=== PATIENT | female | born 1975 | race Caucasian/White ===

== ENCOUNTER → 2019-11-08 11:29 | Outpatient (BNVA) | payer MEDICAID, SELFPAY | PROVIDERS: Family Provider Family Medicine; PCP Family Medicine; Visit Provider Nurse Practitioner Family | DX: J06.9 Acute upper respiratory infection, unspecified (principal); B97.89 Other viral agents as the cause of diseases classified elsewhere | CPT/HCPCS: 81025 ==

== ENCOUNTER → 2020-12-03 15:50 | Outpatient (BNVA) | payer MEDICAID, SELFPAY | PROVIDERS: Family Provider Family Medicine; PCP Family Medicine; Visit Provider Nurse Practitioner Family | DX: Z30.42 Encounter for surveillance of injectable contraceptive (principal) | CPT/HCPCS: 81025 ==

== ENCOUNTER → 2021-05-12 17:23 | Outpatient (BNVA) | payer MEDICAID, SELFPAY | PROVIDERS: Family Provider Family Medicine; PCP Family Medicine; Visit Provider Emergency Medicine | DX: Z20.822 Contact with and (suspected) exposure to COVID-19 (principal) | CPT/HCPCS: 87635 ==

== ENCOUNTER → 2021-08-13 14:03 | Outpatient (BNVA) | payer MEDICAID, SELFPAY | PROVIDERS: Family Provider Family Medicine; PCP Family Medicine; Visit Provider Family Medicine | DX: Z23 Encounter for immunization (principal) | CPT/HCPCS: 81025 ==

== ENCOUNTER → 2021-11-05 14:40 | Outpatient (BNVA) | payer MEDICAID, SELFPAY | PROVIDERS: Family Provider Family Medicine; PCP Family Medicine; Visit Provider Family Medicine | DX: R39.9 Unspecified symptoms and signs involving the genitourinary system (principal); K59.00 Constipation, unspecified; Z30.42 Encounter for surveillance of injectable contraceptive; R31.9 Hematuria, unspecified; K59.04 Chronic idiopathic constipation; R31.1 Benign essential microscopic hematuria | CPT/HCPCS: 81000; 87086 ==

== ENCOUNTER → 2022-05-03 10:30 | Outpatient (BNVA) | payer MEDICAID, SELFPAY | PROVIDERS: Family Provider Family Medicine; PCP Family Medicine; Visit Provider Emergency Medicine | DX: R42 Dizziness and giddiness (principal); K04.7 Periapical abscess without sinus | CPT/HCPCS: 82962 ==

== ENCOUNTER → 2022-08-05 16:44 | Outpatient (BNVA) | payer MEDICAID, SELFPAY | PROVIDERS: Family Provider Family Medicine; PCP Family Medicine; Visit Provider Nurse Practitioner Family | DX: Z30.9 Encounter for contraceptive management, unspecified (principal) | CPT/HCPCS: 81025 ==

== ENCOUNTER → 2023-01-29 09:22 | Outpatient (BNVA) | payer MEDICAID, SELFPAY | PROVIDERS: Family Provider Family Medicine; PCP Family Medicine; Visit Provider Emergency Medicine | DX: M54.50 Low back pain, unspecified (principal); Z30.42 Encounter for surveillance of injectable contraceptive | CPT/HCPCS: 72114 ==

== ENCOUNTER 2023-02-07 22:29 | Emergency (ER) | payer MEDICAID, SELFPAY ==
--- NOTE | 2023-02-07 22:40 | XRR_ITS ---
PROCEDURE INFORMATION: Exam: XR Right Hand Exam date and time: 02/07/2023 10:56 PM Age: 47 years old Clinical indication: Injury or trauma; Fall; Blunt trauma (contusions or hematomas); Wrist and hand; Right; Additional info: Fall injury TECHNIQUE: Imaging protocol: Radiologic exam of the right hand. Views: 3 or more views. COMPARISON: No relevant prior studies available. FINDINGS: Bones/joints: Normal. Soft tissues: Normal. XR/XR hand RT min 3V* [id number] IMPRESSION: Unremarkable.
--- NOTE | 2023-02-07 22:40 | XRR_ITS ---
PROCEDURE INFORMATION: Exam: XR Right Wrist Exam date and time: 02/07/2023 11:01 PM Age: 47 years old Clinical indication: Injury or trauma; Fall; Blunt trauma (contusions or hematomas); Wrist and hand; Right; Additional info: Fall injury TECHNIQUE: Imaging protocol: Radiologic exam of the right wrist. Views: 3 or more views. COMPARISON: CR (UP EX, ) 02/07/2023 10:56 PM FINDINGS: Bones/joints: Subtle nondisplaced transverse fracture through the distal radius. The carpal bones are intact. Soft tissues: Normal. XR/XR wrist RT min 3V* [id number] IMPRESSION: Subtle nondisplaced transverse fracture through the distal radius
[2023-02-07 23:23] VITALS: BP 118/61; PULSE 88; RESP 16; TEMP 36.6; O2SAT 97
[2023-02-07 23:26] VITALS: BMI 24.3
--- NOTE | 2023-02-07 23:46 | W.ED.EXTPRO ---
HPI - Extremity Problem General: Chief complaint: Extremity Injury, Upper Stated complaint: fall , right hand injury Time Seen by Provider: 02/07/23 23:11 History of Present Illness: Patient is a 47-year-old female comes to the ED with right wrist injury. Injury occurred just prior to arrival. Patient was standing on a trailer and fell landing on right wrist. Denies any head trauma or loss of consciousness. She is complaining of having pain in right wrist that she rates a 7 out of 10. Associated symptoms: Deny chest pain, fever(s) or rash Review of Systems Const: Denies: fever(s), chills or fatigue Eyes: Denies: change in vision or eye discomfort ENMT: Denies: throat pain, odynophagia, nasal discharge or nasal congestion Card: Denies: chest pain, palpitations, edema, swelling of feet/ankles, dyspnea on exertion or orthopnea Resp: Denies: dyspnea, productive cough or non-productive cough GI: Denies: abdominal pain, nausea, vomiting, diarrhea, constipation or hematochezia : Denies: flank pain, dysuria or hematuria Musc: Reports: extremity pain (right wrist), extremity swelling (right wrist) and limited range of motion (Right wrist); Denies: neck pain or back pain Skin/Breast: Denies: rash or new lesions Neuro: Denies: headache(s), numbness in extremities or weakness in extremities PFS ED PFSH: Medical History (Updated 02/07/23 @ 23:57 by BRITNEY Patricia) Low back pain Lumbar spine root compression Surgical History No pertinent past surgical history Family History Mother Stroke Diabetes Denies family history of Hypertension Social History Smoking and tobacco status: current some day smoker Alcohol intake: never Female Reproductive History: Spontaneous abortions: No Physical Exam Const: COMMON NORMALS: no acute distress, patient oriented x3 and alert HENMT: COMMON NORMALS: normocephalic HEAD & SCALP: normocephalic MOUTH: Normal oral and palatal mucosa present THROAT: posterior oropharynx normal and uvula midline Neck/C-Spine: COMMON NORMALS: supple GENERAL: Yes normal visual inspection Resp: COMMON NORMALS: normal respiratory effort, No retractions, No use of accessory muscles and clear to auscultation bilaterally AUSCULTATION: clear to auscultation bilaterally Cardio: COMMON NORMALS: regular rate, regular rhythm, S1 normal heart sound present, S2 normal heart sound present, No gallops present (Cardio), No clicks present (Cardio), No murmurs present (Cardio) and Peripheral pulses 2+ throughout RATE: regular rate RHYTHM: regular rhythm HEART SOUNDS: S1 normal heart sound present and S2 normal heart sound present PERIPHERAL PULSES: Peripheral pulses 2+ throughout GI: COMMON NORMALS: Normal to inspection, nondistended, normoactive bowel sounds present, Soft to palpation, non-tender and no masses PALPATION: Yes Soft to palpation : COMMON NORMALS: Yes no CVA tenderness BLADDER/KIDNEY EXAM: Yes no CVA tenderness Back/Pelvis: COMMON NORMALS: no CVA tenderness Extremity: NARRATIVE EXTREMITY EXAM: Right wrist?no visible deformity noted ecchymosis and swelling seen around wrist. Tenderness to radial aspect of wrist. Neurovascular intact distally. Neuro: COMMON NORMALS: patient oriented x3 SENSORIUM/ORIENTATION: Yes alert GAIT: Yes Normal gait present Course Vital Signs: Vital signs: Vital Signs Temperature 98 F 02/08/23 00:29 Pulse Rate 88 02/08/23 00:29 Respiratory Rate 16 02/08/23 00:29 Blood Pressure 118/61 02/08/23 00:29 Pulse Oximetry 97 02/08/23 00:29 Oxygen Delivery Me thod Room Air 02/07/23 23:23 MDM - Extremity (Nontraumatic) Medical Decision Making Patient is a 47-year-old female comes to the ED with right wrist injury. Injury occurred just prior to arrival. Patient was standing on a trailer and fell landing on right wrist. Denies any head trauma or loss of consciousness. She is complaining of having pain in right wrist that she rates a 7 out of 10. Vitals are stable. Right wrist?no visible deformity noted ecchymosis and swelling seen around wrist. Tenderness to radial aspect of wrist. Neurovascular intact distally. X-ray of right wrist shows nondisplaced transverse fracture through the distal radius. I placed order with case management for patient to be referred to Ortho for follow-up of wrist fracture. Patient was given dose of hydrocodone here in the ED and put in a volar splint. She was stable for discharge home with a prescription for couple hydrocodone to help with pain. Return ED precautions given. Patient understood agree with plan. Lab Data Radiology Impressions Hand X-Ray 02/07/23 22:40 IMPRESSION: Unremarkable. Wrist X-Ray 02/07/23 22:40 IMPRESSION: Subtle nondisplaced transverse fracture through the distal radius Discharge Plan Discharge Patient Disposition: Home Clinical Impression: Fracture of right wrist Qualifiers: Encounter type: initial encounter Fracture type: closed Qualified Code(s): S62.101A - Fracture of unspecified carpal bone, right wrist, initial encounter for closed fracture Condition: Stable Prescriptions: No Action ondansetron 4 mg tablet,disintegrating 4 mg PO Q8H 4 Days Qty: 12 0RF medroxyprogesterone 150 mg/mL syringe See Rx Instructions .ROUTE .COMPLEX Qty: 1 3RF Dose Instruction: 150 MG IM EVERY 3 MONTHS Rx Instructions: 150 MG IM EVERY 3 MONTHS Discharge Orders: Discharge ED (Routine); Ordered 02/07/23 Ordered By: Sarthak Choudhury Referrals: Lucila Knox MD [Primary Care Provider] - Discharge Diet: Regular Discharge Activity: Limit activity as instructed Patient Instructions: Wrist Fracture in Adults (ED), Opioid Safety Activity Restrictions/Additional Instructions: Follow-up with medical provider as directed. Case management will contact you in the next several days to set up an appointment with Ortho for follow-up on wrist fracture. Keep splint on and dry and limit activity with right wrist until cleared by Ortho. Take medications as prescribed. Return to the ER or your medical provider if condition worsens. Please read and understand discharge instructions. Thank you for choosing [facility] for your healthcare needs today. Please realize this is an emergency room and that we are providing you with a medical screening exam and this may not be complete and all inclusive of all the testing and or work up that you may need to determine your ailment or severity of your illness. It is very important that you follow up as instructed or that you return to the Emergency Department should you have concerns or if your condition changes or worsens in any way. Coding Level of Care Code ED [employer] for Olivia Silverio
[2023-02-07] MEDS: HYDROcodone-acetaminophen 7.5-325 mg Tablet 1 TAB PO (23:55)
[2023-02-08 00:29] VITALS: BP 118/61; PULSE 88; RESP 16; TEMP 36.6; O2SAT 97
--- NOTE | 2023-02-09 08:55 | DCPLANNER ---
Addendum entered by Rosa Holbrook 02/19/23 08:52: This appointment was rescheduled Addendum entered by Rosa Holbrook 02/10/23 11:29: Patient has a follow up appointment scheduled for Saturday, February 18, 2023 at 8:[address] Saalzar at ortho. Original Note: underwriting support manager had message to schedule a follow up appointment for patient with ortho. underwriting support manager sent patients information to the front office staff at ortho. Patients information will be printed and reviewed. Clinic will call patient with appointment information.
== END 2023-02-08 00:31 | disposition home or self-care (01) ==
PROVIDERS: Emergency Provider Physician Assistant; PCP Family Medicine
DX: S52.591A Other fractures of lower end of right radius, initial encounter for closed fracture (principal); F17.210 Nicotine dependence, cigarettes, uncomplicated; W17.89XA Other fall from one level to another, initial encounter
CPT/HCPCS: 29125; 73110; 73130; 99283; A4590

== ENCOUNTER 2023-02-23 06:00 | Outpatient (RCR) | payer MEDICAID, SELFPAY | END 2023-03-25 23:59 | disposition home or self-care (01) | LOC: MPT 06:00 | PROVIDERS: Visit Provider Emergency Medicine | DX: M54.16 Radiculopathy, lumbar region (principal); M54.50 Low back pain, unspecified; G89.29 Other chronic pain | CPT/HCPCS: 97110; 97162; 97530 ==

== ENCOUNTER 2023-02-24 10:29 | Emergency (ER) | payer MEDICAID, SELFPAY ==
[2023-02-24 10:35] VITALS: BP 135/88; PULSE 85; RESP 16; TEMP 36.8; O2SAT 98; BMI 33.5
--- NOTE | 2023-02-24 10:52 | XRR_ITS ---
PROCEDURE INFORMATION: Exam: XR Right Wrist Exam date and time: 02/24/2023 11:10 AM Age: 47 years old Clinical indication: Pain; Wrist; Right; Additional info: Previous wrist FX; Pain/bruising TECHNIQUE: Imaging protocol: Radiologic exam of the right wrist. Views: 3 or more views. COMPARISON: CR ( EX, ) 02/07/2023 11:01 PM FINDINGS: Bones/joints: There is a nondisplaced transverse fracture of the distal radial metaphysis with subtle buckling of the dorsal cortex, similar to the findings on 02/07/2023. The distal ulna is intact. Wrist alignment is normal. Carpal bones are intact. Joint alignment is normal. Joint spaces are preserved. Soft tissues: Visible soft tissues are unremarkable. XR/XR wrist RT min 3V* [id number] IMPRESSION: Nondisplaced distal radial metaphyseal fracture. No change since 02/07/2023.
--- NOTE | 2023-02-24 10:53 | ED_ITS ---
HPI - Extremity Injury (Upper) General: Chief Complaint: Extremity Injury, Upper Stated Complaint: right hand injury Time Seen by Provider: 02/24/23 10:48 Source: patient Mode of arrival: ambulatory Limitations: no limitations History of Present Illness: Patient is a 47-year-old female who presents to ED today for evaluation of continued right wrist pain. Patient was seen at our facility on 02/07 and diagnosed with a subtle distal radial fracture. According to case management documentation she had submitted information to the orthopedic clinic and they were supposed to reach out to patient in regards to her follow-up appointment. Case management then later documented that patient had an appointment scheduled Saturday, February 18, 2023 at 8:[address] Salazar. Patient tells me she was never aware of this appointment therefore never has had orthopedic follow-up. She has not been wearing her splint as instructed since the injury. She has removed it and now wearing a velcro wrist splint. She has noticed bruising around the wrist. MD complaint: injury to: right and wrist Onset (ago): week(s) Other injuries: none Place: home Severity: moderate Relieving factors: immobilization Exacerbating factors: movement of extremity Associated symptoms: Reports no associated symptoms; Denies weakness in extremities Treatments prior to arrival: splint Review of Systems Musc: Reports: joint pain (R wrist), joint swelling (R wrist) and limited range of motion; Denies: extremity pain, extremity swelling, joint redness or joint warmth Neuro: Denies: numbness in extremities, weakness in extremities or sensory changes PFS ED PFSH: Medical History Low back pain Lumbar spine root compression Surgical History No pertinent past surgical history Family History Mother Stroke Diabetes Denies family history of Hypertension Social History Smoking and tobacco status: current some day smoker Alcohol intake: never Substance/Drug Use: never Female Reproductive History: Spontaneous abortions: No Physical Exam Const: COMMON NORMALS: no acute distress, patient oriented x3, no limitations, alert and well nourished Extremity: RIGHT UPPER EXTREMITY: Yes wrist Right wrist: Yes inspection (swelling/old healing ecchymosis present), Yes palpation (TTP distal R radial wrist), Yes ROM (limited secondary to pain) and Yes neurovascular exam (normal) and Yes hand & digits Neuro: COMMON NORMALS: patient oriented x3, moves all extremities, no focal motor deficits and no sensory deficits noted SENSORIUM/ORIENTATION: Yes alert Course Vital Signs: Vital signs: Vital Signs Temperature 98.2 F 02/24/23 10:35 Pulse Rate 85 02/24/23 10:35 Respiratory Rate 16 02/24/23 10:35 Blood Pressure 135/88 02/24/23 10:35 Pulse Oximetry 98 02/24/23 10:35 Oxygen Delivery Me thod Room Air 02/24/23 10:35 MDM - Extremity Injury (Upper) Medical Decision Making Patient had an appointment scheduled for February 18 however patient states she was unaware of this appointment and never followed up. After speaking to case management today it was noted she actually had an appointment at orthopedics at 11:00 today. We called ortho and they graciously are willing to see patient at 1:00 today. XR notable for her distal radial fracture. I do have some suspicion for possible scaphoid fracture on one view. Will let ortho further evaluate. Discharge Plan Discharge Patient Disposition: Home Clinical Impression: Closed right radial fracture Qualifiers: Encounter type: subsequent encounter Radius location: distal Fracture morphology: unspecified fracture morphology Fracture healing: with routine healing Qualified Code(s): S52.501D - Unspecified fracture of the lower end of right radius, subsequent encounter for closed fracture with routine healing Condition: Stable Prescriptions: No Action ondansetron 4 mg tablet,disintegrating 4 mg PO Q8H 4 Days Qty: 12 0RF medroxyprogesterone 150 mg/mL syringe See Rx Instructions .ROUTE .COMPLEX Qty: 1 3RF Dose Instruction: 150 MG IM EVERY 3 MONTHS Rx Instructions: 150 MG IM EVERY 3 MONTHS Discharge Orders: Discharge ED (Routine); Ordered 02/24/23 Ordered By: Heide Ascencio Activity Restrictions/Additional Instructions: ORTHOPEDIC CLINIC IS GOING TO EVALUATE YOU TODAY AT 1:00. WE DISCUSSED THEIR OFFICE IS IN THE NEW MEDICAL OFFICE BUILDING. YOU HAVE RECEIVED INSTRUCTIONS ON HOW TO GET THERE FROM THE ED. THEY WILL REVIEW YOUR X-RAY FROM TODAY AND EVALUATE YOU AND PLACE YOU IN AN APPROPRIATE SPLINT/CAST. Coding Level of Care Code ED Applications Administrator for Olivia Silverio
--- NOTE | 2023-02-24 11:39 | DCPLANNER ---
Addendum entered by Rosa Holbrook 02/24/23 14:00: Patient had a follow up appointment scheduled with ortho - patient did attend appointment. Original Note: brood station manager was asked to call ortho about patients appointment that was scheduled. brood station manager told provider that appointment was scheduled for today at 11:00, patient did not attend appointment. brood station manager was asked to call ortho and see if patient could be seen today. brood station manager called the ortho clinic, was told that patient could be seen today at 1:00. brood station manager gave ER provider the new appointment, and this was given to the patient.
--- NOTE | 2023-02-24 11:45 | PC.NURSE ---
[place] [facility] [place] per charge nurse, do not splint, send her to appt where they will splint.
== END 2023-02-24 11:43 | disposition home or self-care (01) ==
PROVIDERS: Emergency Provider Physician Assistant
DX: S52.501A Unspecified fracture of the lower end of right radius, initial encounter for closed fracture (principal); F17.210 Nicotine dependence, cigarettes, uncomplicated; W19.XXXA Unspecified fall, initial encounter; Y99.0 Civilian activity done for income or pay
CPT/HCPCS: 73110; 99214; 99283

== ENCOUNTER 2023-02-24 15:34 | Outpatient (CLI) | payer MEDICAID, SELFPAY | END 2023-02-24 15:35 | disposition home or self-care (01) | LOC: SPT 15:35 | PROVIDERS: Visit Provider Nurse Practitioner Family | DX: Z46.89 Encounter for fitting and adjustment of other specified devices (principal); S52.591D Other fractures of lower end of right radius, subsequent encounter for closed fracture with routine healing; X58.XXXD Exposure to other specified factors, subsequent encounter | CPT/HCPCS: 97760; L3982 ==

== ENCOUNTER 2023-03-26 06:00 | Outpatient (RCR) | payer MEDICAID, SELFPAY | END 2023-04-24 23:59 | disposition home or self-care (01) | LOC: MPT 06:00 | PROVIDERS: Visit Provider Emergency Medicine | DX: M54.16 Radiculopathy, lumbar region (principal); M54.50 Low back pain, unspecified; G89.29 Other chronic pain | CPT/HCPCS: 97110; 97530 ==

== ENCOUNTER → 2023-04-01 14:19 | Outpatient (BNVA) | payer MEDICAID, SELFPAY | PROVIDERS: Visit Provider Nurse Practitioner Family | DX: S52.521A Torus fracture of lower end of right radius, initial encounter for closed fracture (principal); X58.XXXA Exposure to other specified factors, initial encounter | CPT/HCPCS: 73110; 99213 ==

== ENCOUNTER 2023-04-01 15:19 | Outpatient (CLI) | payer MEDICAID, SELFPAY | END 2023-04-01 15:20 | disposition home or self-care (01) | LOC: SPT 15:20 | PROVIDERS: Visit Provider Nurse Practitioner Family | DX: Z46.89 Encounter for fitting and adjustment of other specified devices (principal); M25.531 Pain in right wrist | CPT/HCPCS: 97760; L3908 ==

== ENCOUNTER 2023-04-25 06:00 | Outpatient (RCR) | payer MEDICAID, SELFPAY | END 2023-05-04 23:59 | disposition home or self-care (01) | LOC: MPT 06:00 | PROVIDERS: Visit Provider Emergency Medicine | DX: M54.50 Low back pain, unspecified (principal); G89.29 Other chronic pain; M54.16 Radiculopathy, lumbar region | CPT/HCPCS: 97110 ==

== ENCOUNTER → 2023-05-05 16:07 | Outpatient (BNVA) | payer MEDICAID, SELFPAY | PROVIDERS: Visit Provider Nurse Practitioner Family | DX: M79.672 Pain in left foot (principal); M77.32 Calcaneal spur, left foot; Z30.9 Encounter for contraceptive management, unspecified | CPT/HCPCS: 73630; 81025 ==

== ENCOUNTER → 2023-09-16 09:31 | Outpatient (BNVA) | payer MEDICAID, SELFPAY | PROVIDERS: Visit Provider Emergency Medicine | DX: M25.572 Pain in left ankle and joints of left foot; Z30.9 Encounter for contraceptive management, unspecified | CPT/HCPCS: 73610; 81025 ==

== ENCOUNTER → 2024-02-09 16:42 | Outpatient (BNVA) | payer MEDICAID, SELFPAY | PROVIDERS: PCP Family Medicine; Visit Provider Nurse Practitioner Family | DX: M79.672 Pain in left foot (principal) | CPT/HCPCS: 73630 ==

== ENCOUNTER → 2024-03-07 14:15 | Outpatient (BNVA) | payer MEDICAID, SELFPAY | PROVIDERS: PCP Family Medicine; Visit Provider Family Medicine | DX: Z30.42 Encounter for surveillance of injectable contraceptive (principal); Z13.1 Encounter for screening for diabetes mellitus; G62.9 Polyneuropathy, unspecified; Z13.220 Encounter for screening for lipoid disorders; Z13.6 Encounter for screening for cardiovascular disorders; I10 Essential (primary) hypertension; M79.671 Pain in right foot; M79.672 Pain in left foot | CPT/HCPCS: 80053; 80061; 82607; 83036; 83735 ==

== ENCOUNTER → 2024-09-29 16:29 | Outpatient (BNVA) | payer MEDICAID, SELFPAY | PROVIDERS: PCP Family Medicine; Visit Provider Family Medicine | DX: Z32.00 Encounter for pregnancy test, result unknown (principal) | CPT/HCPCS: 81025 ==

== ENCOUNTER → 2024-12-22 11:49 | Outpatient (BNVA) | payer MEDICAID, SELFPAY | PROVIDERS: PCP Family Medicine; Visit Provider Family Medicine | DX: J98.8 Other specified respiratory disorders (principal); B97.89 Other viral agents as the cause of diseases classified elsewhere | CPT/HCPCS: 87400; 87426 ==